=== PATIENT | male | born 1980 | race Caucasian/White ===

== ENCOUNTER 2018-10-31 10:13 | Emergency (ER) | payer SELFPAY ==
[2018-10-31 12:00] VITALS: BP 119/77
== END 2018-10-31 12:00 | disposition home or self-care (01) | DRG 554 ==
LOC: ED 10:13
DX: M10.9 Gout, unspecified (principal); M25.572 Pain in left ankle and joints of left foot

== ENCOUNTER 2019-01-29 16:22 | Emergency (ER) | payer OTHER ==
[~2019-01-29] VITALS: Ht 180.3 cm; Wt 100.0 kg
[2019-01-29] MEDS ORDERED: KEFLEX500 M1 PO (17:17)
[2019-01-29] MEDS ORDERED: TORADOL PO (17:17)
[2019-01-29] MEDS ORDERED: PERCOCET 5/321 COMBO PO (17:18)
[2019-01-29 17:49] VITALS: BP 150/84
== END 2019-01-29 17:49 | disposition home or self-care (01) | DRG 563 ==
LOC: ED 16:22
PROC: 2W3KX1Z Immobilization of Left Finger using Splint (ICD-10-PCS; principal; 2019-01-29)
DX: S62.631A Displaced fracture of distal phalanx of left index finger, initial encounter for closed fracture (principal); S60.411A Abrasion of left index finger, initial encounter; W23.0XXA Caught, crushed, jammed, or pinched between moving objects, initial encounter